=== PATIENT | male | born 1945 | race Caucasian/White ===

== ENCOUNTER 2019-02-23 07:21 | Inpatient (IN) | payer OTHER ==
[~2019-02-23] VITALS: Ht 165.1 cm; Wt 63.5 kg
[2019-02-23] MEDS ORDERED: COZAAR100 MG PO (07:49)
[2019-02-23] MEDS ORDERED: CARVEDILOL ER40 MG PO (07:50)
[2019-02-23] MEDS ORDERED: AMLODIPINE-OLM1 EAC3 PO (07:51)
[2019-02-23] MEDS ORDERED: PRAVASTATIN SOD20 MG PO (07:51)
[2019-02-23] MEDS ORDERED: STIOLTO RESPIMAT4 GM IH (07:52)
--- NOTE | 2019-02-23 07:53 | NUR ---
PACIENTE ALERTA, ORIENTADO X 3. REFIERE TENER DEBILIDAD, CANSANCIO Y TENER LA HEMOGLOBINA BAJA. JOSÉ MANUEL REFERIDO DE DR.JOSE LUIS DANIEL CALL, PARA EVALUACION POR ILEOCECAL VALVE ADENOCARCINOMA.
--- NOTE | 2019-02-23 07:57 | NUR ---
SE REALIZA EKG Y SE UBICA EN AREA DE OBSERVACION.
--- NOTE | 2019-02-23 09:07 | NUR ---
PTE EVALUADO POR EL DR PANCHAL QUIEN ORDENA EL [place]. SE ORIENTA SOBRE EL MISMO, LO CUAL PTE Y FAMILIAR REFIEREN ENTENDER. SE REALIZAN PRUEBAS DE LABORATORIO Y SE ADMINISTRA MEDICAMENTO EFE ORDEN MEDICA Y SIGUIENDO MEDIDAS ASEPTICAS.
--- NOTE | 2019-02-23 11:56 | NUR ---
SE COLECTAN TUBOS PILOTOS PARA 2 U DE PRBC Y SE CANALIZA PTE SIGUIENDO MEDIDAS ASEPTICAS Y ESTERILES.
--- NOTE | 2019-02-23 15:00 | NUR ---
SE RECIBE PACIENTE ALERTA Y ORIENTADO POR JESE ESFERAS EN CAMA CON BUEN PATRON RESPIRATORIO, PACIENTE SE OBSERVA PALIDO. SEIVF'S PATENTE NOEL DE EDEMA Y ENROJECIMIENTO BAJANDO UN .9NSS @ 166ML/HR. PENDIENTE CONSULTA CON DR. DICK GARCIA. PACIENTE CON 2 UNIDADES DE PRBC;S PENDIENTES, NO DISPONIBLES. PACIENTE CON PERMISO DE TRANSFUSION DE JEY FIRMADO.
[2019-03-05] MEDS ORDERED: TRAM1TAB98 PO (17:32)
[2019-03-05] MEDS ORDERED: INTESTINEX680 M1 PO (17:32)
== END 2019-03-05 17:53 | disposition home or self-care (01) | DRG 329 ==
LOC: ER 07:21 → SURH 17:22
PROVIDERS: Urology; ADMIT Surgery
PROC: 30233N1 Transfusion of Nonautologous Red Blood Cells into Peripheral Vein, Percutaneous Approach (ICD-10-PCS; 2019-02-24)
PROC: B246ZZZ Ultrasonography of Right and Left Heart (ICD-10-PCS; 2019-02-24)
PROC: 4A033R1 Measurement of Arterial Saturation, Peripheral, Percutaneous Approach (ICD-10-PCS; 2019-02-24)
PROC: 3E0F7GC Introduction of Other Therapeutic Substance into Respiratory Tract, Via Natural or Artificial Opening (ICD-10-PCS; 2019-02-25)
PROC: 0WHR8YZ Insertion of Other Device into Genitourinary Tract, Via Natural or Artificial Opening Endoscopic (ICD-10-PCS; 2019-02-27)
PROC: 0DH67UZ Insertion of Feeding Device into Stomach, Via Natural or Artificial Opening (ICD-10-PCS; 2019-02-27)
PROC: 3E0G76Z Introduction of Nutritional Substance into Upper GI, Via Natural or Artificial Opening (ICD-10-PCS; 2019-02-27)
PROC: 0DTF4ZZ Resection of Right Large Intestine, Percutaneous Endoscopic Approach (ICD-10-PCS; principal; 2019-02-27 07:00)
PROC: 07TB4ZZ Resection of Mesenteric Lymphatic, Percutaneous Endoscopic Approach (ICD-10-PCS; 2019-02-27 07:00)
PROC: 4A12X4Z Monitoring of Cardiac Electrical Activity, External Approach (ICD-10-PCS; 2019-02-28)
PROC: BB24Y0Z Computerized Tomography (CT Scan) of Bilateral Lungs using Other Contrast, Unenhanced and Enhanced (ICD-10-PCS; 2019-03-01)
DX: C18.0 Malignant neoplasm of cecum (principal); I50.43 Acute on chronic combined systolic (congestive) and diastolic (congestive) heart failure; J80 Acute respiratory distress syndrome; C77.2 Secondary and unspecified malignant neoplasm of intra-abdominal lymph nodes; J44.1 Chronic obstructive pulmonary disease with (acute) exacerbation; J45.41 Moderate persistent asthma with (acute) exacerbation; J95.89 Other postprocedural complications and disorders of respiratory system, not elsewhere classified; J98.11 Atelectasis; E44.0 Moderate protein-calorie malnutrition; N32.0 Bladder-neck obstruction; D63.0 Anemia in neoplastic disease; I48.0 Paroxysmal atrial fibrillation; I08.1 Rheumatic disorders of both mitral and tricuspid valves; I11.0 Hypertensive heart disease with heart failure; I70.0 Atherosclerosis of aorta; K63.89 Other specified diseases of intestine; F17.218 Nicotine dependence, cigarettes, with other nicotine-induced disorders; Z85.46 Personal history of malignant neoplasm of prostate; Z08 Encounter for follow-up examination after completed treatment for malignant neoplasm; Z79.01 Long term (current) use of anticoagulants